=== PATIENT | male | born 1995 | race Caucasian/White ===

== ENCOUNTER 2016-10-12 22:23 | Observation (INO) | payer BC ==
[~2016-10-12] VITALS: Ht 193 cm; Wt 141.9 kg
--- NOTE | ~2016-10-12 | DS ---
PATIENT'S NAME: SANFORD LAM [facility] AGE: 21 Y [address] ROOM: G6324 [place], [place] [address] LOCATION: GPCU ADMIT DATE: 10/13/2016 Discharge Summary DISCHARGE DATE: 10/14/2016 FAMILY PHYSICIAN: Ede Sauceda MD ATTENDING PHYSICIAN: Miguel Velarde V CORRECTED SIGNATURE LINE 10/18/16 AO FINAL DIAGNOSES: 1. Diabetic ketoacidosis. 2. Poorly controlled diabetes mellitus. 3. Low back pain. 4. 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 Please see the history and physical dictated by Dr. Velarde for details of admission. The patient was admitted with elevated blood sugars resulting in DKA. LABORATORY STUDIES: On admission, his sodium was 132, most prior to discharge 139; potassium on admit was 4.8, most prior to discharge 3.9; CO2 on admission was 13, most prior to discharge 21; BUN on admission was 29, at discharge 22; creatinine on admission was 1.3, at discharge 1.1. Hemoglobin A1c was 9.6. C- reactive protein 0.52. TSH 0.923. White blood cell count on admission was 12.1, hemoglobin 15.7, hematocrit 46.7, platelet count 338, and increase in neutrophils. Sedimentation rate was 8. Urinalysis on admission showed protein, glucose, and ketones. Chest x-ray on admission did not show any evidence of infection. HOSPITAL COURSE: The patient was admitted on to the ICU on an IV insulin drip. He was given aggressive IV hydration. He did receive IV fluids. His blood sugars did start to come down. He did have significant pain in his back for which he was given Toradol and narcotics. His blood sugars came down to an acceptable range, and the decision was made to place him back on the insulin pump; however, when he was placed back on the insulin pump, his blood sugars did start to rise. It was also noted at this time that he was still acidotic and was given bicarb in his IV fluids. Decision was made to take the pump off and to start using Levemir and NovoLog. The patient did voice understanding of that and agreed to proceed with that manner. It was felt that he was stable for discharge and that he could work with his primary provider in terms of seeing if his pump was malfunctioning. He is discharged to home. He is advised to follow his diabetic diet. He is to follow up with Mayela Andrea at [facility], he will see Mayela Andrea on 10/18/[address] Ede Sauceda on 10/19/2015 at 11:15. DISCHARGE MEDICATIONS: 1. Synthroid 125 mcg daily. 2. [place] 5/325 one every 6 hours as needed for pain. 3. Ibuprofen 400 mg every 6 hours as needed. PATIENT'S NAME: SANFORD LAM [facility] AGE: 21 Y [address] ROOM: [place] [address] LOCATION: GPCU ADMIT DATE: 10/13/2016 Discharge Summary DISCHARGE DATE: 10/14/2016 FAMILY PHYSICIAN: Ede Sauceda MD ATTENDING PHYSICIAN: Miguel Velarde V 4. He was placed on Lantus 24 units at bedtime and NovoLog Pen 2 units per 15 g of carbs consumed with meals 3 times daily. I did give the patient a note explaining that he was in the hospital from 10/12/2016 through 10/14/2016. LA BINGHAM MD LAW/modl /[id number] CC: MD Mayela Doyle APRN CORRECTED SIGNATURE LINE 10/18/16 AO d: 10/15/16 0308 t: 10/26/16 1202, DISCHARGE SUMMARY
--- NOTE | ~2016-10-12 | ECHO ---
Transthoracic Echocardiography Report (TTE) Demographics Patient Name SANFORD LAM Date of Study 10/13/2016 Patient Number [id number] Visit Number [id number] Date of 1995 Room Number G6324 Accession Number [id number] Gender Male Age 21 year(s) Referring Komal Jeff Suspender Maker Rogelio Douglas MD Physician Interpreting [facility] Literacy Coordinator Physician Sylvia CHAPA Supervising Ordering Physician Syd Rivera MD/JAY JAY Wilburn MD Nurse Stress Hairspring Vibrator Conclusions Contractility Score Summary Normal Left Ventricular contractility was noted. Summary Normal LV/RV size and s ystolic function. The estimated left ventricular ejection fraction is 60-65%. Diastolic assessment reveals normal relaxation. The right atrium is mildly dilated. No significant valvular abnormalities. No pericardial effusion. Procedure Type of Study TTE procedure:2D Echocardiogram, M-Mode, Doppler , Color Doppler. Procedure Date Date: 10/13/2016 Start: 08:05 AM Study Location: Inpatient Portable Technical Quality: Good visualization Indications:Cardiomegaly. Appropriate Use Criteria: 9 Patient Status: Routine HR: 78 bpm BP: 135/61 mmHg M-Mode/2D Measurements LV Diastolic Dimension: 6.31 cm LV Systolic Dimension: 4.28 cm LV Septum Diastolic: 1.25 cm LV PW Diastolic: 1.15 cm AO Root Dimension: 2.8 cm Cardiac Output: 10.67 l/min LA Dimension: 4 cm EF Estimated: 65 % LVOT: 2.7 cm LVOT VTI: 23.9 cm RV Base: 3.07 cm LV Stroke volume: 136.77 ml RV Length: 8.64 cm Doppler Measurements AV Peak Velocity: 1.57 m/s MV Peak E-Wave: 1.22 m/s AV Peak Gradient: 9.86 mmHg MV Peak A-Wave: 0.74 m/s AV Mean Gradient: 5 mmHg MV E/A Ratio: 1.66 LVOT Peak Velocity: 1.4 m/s MV P1/2t: 70 msec TR Gradient:6.35 mmHg PV Peak Velocity: 1.15 m/s Estimated RAP:3 mmHg PV Peak Gradient: 5.29 mmHg Estimated RVSP: 9 mmHg Estimated PASP: 9.35 mmHg E' Septal Velocity: 0.1 m/s A' Septal Velocity: 0.08 m/s E' Lateral Velocity: 0.1 m/s A' Lateral Velocity: 0.08 m/s Findings Left Ventricle Diastolic assessment reveals normal relaxation. Right Ventricle Normal right ventricular size and function. Left Atrium The left atrium is normal in size. Right Atrium The right atrium is mildly dilated. IVC measures 2.06 cm with inspiratory collapse. Mitral Valve Trivial mitral regurgitation by color Doppler. Mild mitral annular calcification. Aortic Valve Normal aortic valve structure and function. Tricuspid Valve Trivial tricuspid regurgitation by color Doppler. Pulmonic Valve Normal pulmonic valve structure and function. Pericardial Effusion No evidence of pericardial effusion. Miscellaneous Visualized portions of the aortic root and ascending aorta appear normal in size. Pleural Effusion No evidence of pleural effusion. Contractility Score LV regional wall motion:(0-Non visualized 1-Normal 2-Hypokinesis 3-Akinesis 4-Dyskinesis 5-Aneurysm) Signature dtt: SYLVIA SHER dtd: 10/13/16 0805 Physician Self Edit
--- NOTE | ~2016-10-12 | HP ---
PATIENT'S NAME: SANFORD LAM [facility] AGE: 21 Y [address] ROOM: [place] [address] LOCATION: GPCU ADMIT DATE: 10/13/2016 History & Physical DISCHARGE DATE: FAMILY PHYSICIAN: MANUEL MILLER MD ATTENDING PHYSICIAN: JANEL MORIN V DATE OF SERVICE: CHIEF COMPLAINT: High sugars. HISTORY OF PRESENT ILLNESS: The patient is a 21-year-old male with type 1 diabetes. He has been experiencing high sugars in the 300s range for the last several days despite giving himself extra boluses of insulin via his insulin pump. He could not, however, get adequate control of his Accu-Cheks. He went to the hospital in [place] and was treated with IV fluids and was instructed to change his insulin vial and tubing on his pump and follow up with his oracle soa developer. He did this but new tubing/vial did not improve his symptoms or blood glucose. These symptoms include generalized malaise, fatigue, and polyuria. In the ER here, he was found to have mild DKA. The patient also complains of right-sided lower back pain after moving some heavy equipment. He does have a history of bulging disk, status post laminectomy though he denies any weakness or paresthesias. REVIEW OF SYSTEMS: Positive for occasional dyspnea. All 10 systems have been reviewed and all are negative except for pertinent positives mentioned above. PAST MEDICAL HISTORY: Significant for, 1. Degenerative spine disease of lumbar spine. 2. Type 1/insulin-dependent diabetes. 3. Hypothyroidism. CURRENT MEDICATIONS: 1. [place]. 2. Insulin via pump. 3. Levothyroxine. SOCIAL HISTORY: The patient denies any toxic habits. He works with inmates in the longterm. As such, he does have multiple exposures. [facility]GE[facility] 21 Y [address] ROOM: [place] [address] LOCATION: GPCU ADMIT DATE: 10/13/2016 History & Physical DISCHARGE DATE: FAMILY PHYSICIAN: MANUEL MILLER MD ATTENDING PHYSICIAN: JANEL MORIN V FAMILY HISTORY: Significant for heart disease and cancer on his father's side. PHYSICAL EXAMINATION: VITAL SIGNS: Blood pressure 137/62, pulse is 78, respirations 14, saturating 98%, and temperature is 96.4. GENERAL APPEARANCE: A morbidly obese, young male, in mild discomfort. NEUROLOGICAL: Nonfocal. HEENT: ENT: Dry mucous membranes. Eyes: Pupils are equal and reactive to light. LYMPHATIC: No cervical lymphadenopathy. ENDOCRINE: No thyromegaly. LUNGS: Clear to auscultation. HEART: Rate is regular. No appreciable murmurs, gallops, or rubs. ABDOMEN: Soft, nontender, and nondistended. : No costovertebral angle tenderness. VASCULAR: 2+ pedal pulses. MUSCULOSKELETAL: Does show some paravertebral spinal muscle tenderness in the right side. SKIN: Warm and dry. PSYCHIATRIC: Appropriate mood, cognition, and affect. LABORATORY DATA: Studies done in the ER significant for Accu-Cheks 296, venous pH 7.12. Sodium 132, bicarb is 13, anion gap is 17, BUN 29, creatinine 1.3. Ketones positive at 1-16. White count is 12.1. Chest x-ray showed some cardiomegaly. ASSESSMENT AND PLAN: This is a 21-year-old male who will be admitted with, 1. Diabetic ketoacidosis. We will treat him with IV insulin. We will frequently monitor his electrolytes. We will continue aggressive hydration, at this point with normal saline and change it to potassium containing IV once his potassium goes down as expected. We will request a oracle soa developer consult as his diabetes is very poorly controlled. 2. Musculoskeletal back pain. I explained to the patient that given recent typical injury causing lower back pain, the best therapy for now is exercise and NSAIDs, and we will defer any imaging until later. 3. Complains of dyspnea and cardiomegaly on the chest x-ray. We will get an EKG and a 2-dimensional echocardiogram given positive review of systems and radiologic findings. 4. Hypothyroidism. We will continue the patient on his current thyroid and check his TSH. Additional management will depend on clinical course. Time dedicated to the patient's encounter is 35 minutes. PATIENT'S NAME: SANFORD LAM [facility] AGE: 21 Y [address] ROOM: [place] [address] [facility] AD[facility] DATE: 10/13/2016 History & Physical DISCHARGE DATE: FAMILY PHYSICIAN: MANUEL MILLER MD ATTENDING PHYSICIAN: JANEL MORIN V MD BRYCE POWERS/kikol /[id number] D: [id number] T: [id number] HISTORY & PHYSICAL
--- NOTE | ~2016-10-12 | ER ---
PATIENT'S NAME: SANFORD LAM [facility] AGE: 21 Y [address] ROOM: [place] [address] LOCATION: GPCU ADMIT DATE: 10/13/2016 ER/Outpatient Report DISCHARGE DATE: FAMILY PHYSICIAN: MANUEL MILLER MD ATTENDING PHYSICIAN: JANEL MORIN V Time of Evaluation: 2235 hours. HISTORY OF PRESENT ILLNESS: The patient is a 21-year-old type 1 diabetic, who presents with history of not feeling well for approximately 2 days. The patient was actually seen in [place], [place] ER this afternoon. Blood sugar at that time was over 500. He was given a couple liters of fluid and then advised to follow up with his family doctor. The patient also has experienced some low back pain over the last week. The patient does have a history of herniated disk, which has been treated for in the past. He denies any fever, but has had chills. He has also had 2 emesis today. ALLERGIES: NONE. CURRENT MEDICATIONS: See his copied list. He does have an insulin pump. MEDICAL HISTORY: Jolanta's disease, herniated disk, insulin-dependent diabetes mellitus. SURGERIES: Include diskectomy and hemorrhoidectomy. SOCIAL HISTORY: Denies tobacco use. Alcohol, 4 to 5 drinks per week. REVIEW OF SYSTEMS: GENERAL: Chills. Denies fevers. HEENT: No complaints of headache, visual changes, sore throat. RESPIRATORY: He has had no cough or wheezing. CARDIOVASCULAR: No chest pain. No heart palpitations. GASTROINTESTINAL: Denies abdominal pain. He has had nausea and vomiting. GENITOURINARY: No flank pain. No dysuria. MUSCULOSKELETAL: Negative. PHYSICAL EXAMINATION: VITAL SIGNS: His temperature here was 96.4, his respiratory rate 14, pulse 78, his O2 sats 98%. His blood pressure 137/62. PATIENT'S NAME: SANFORD LMA [facility] AGE: 21 Y [address] ROOM: [address] [address] LOCATION: GPCU ADMIT DATE: 10/13/2016 ER/Outpatient Report DISCHARGE DATE: FAMILY PHYSICIAN: MANUEL MILLER MD ATTENDING PHYSICIAN: JANEL MORIN V GENERAL APPEARANCE: Oriented x3. Did not appear to be in any severe distress. HEENT: Head: Normocephalic. Eyes: PERRLA. No icterus. Nose: Septum midline. Mouth: Teeth appeared in good repair. Tongue and oral membranes were dry. LUNGS: Peripherally were clear bilaterally. HEART: Heart tones distant but regular. ABDOMEN: Appeared soft, nontender. BACK: He had a small surgical scar on the lumbar area. Slightly tender to palpation. NEUROLOGICAL: He had good sensation to his lower extremities. LABORATORY DATA AND X-RAYS: His venous pH was critically high at 7.12. Acetones were positive. CBC: White count 12.1, ANC was 10.4, his hemoglobin was 15.7. His CMS, sodium was low at 132, as well as his CO2 low at 13, anion gap was 21.8. His glucose here was 316. BUN high at 29. CRP was 0.52. His sed rate was within normal limits. Hemoglobin A1c was 9.6, mean glucose was 28.8. Sedimentation rate was 8. ASSESSMENT: Diabetic ketoacidosis. PLAN AND TREATMENT: IV was started here in the emergency room with normal saline. Dr. Morin, the hospitalist, was consulted and will admit the patient to PCU. He advised to giving NovoLog 8 units subcu. The patient was also given 60 of Toradol IM for his back pain. MINOO LYNCH FOR MD DONNY RAMEY/gurdeep /[id number] d: 10/13/16 0159 t: 10/22/16 1242, OUTPATIENT REPORT
[2016-10-12 22:39] LABS: BILIRUBIN URINE NEGATIVE (NEGATIVE); BLOOD URINE NEGATIVE /UL (NEGATIVE); COLOR URINE YELLOW (YELLOW); GLUCOSE URINE 1000 mg/dL (NEGATIVE); KETONE URINE 150 mg/dL (NEGATIVE); LEUKOCYTES URINE NEGATIVE /UL (NEGATIVE); NITRITE URINE NEGATIVE (NEGATIVE); PROTEIN URINE 15 mg/dL (NEGATIVE); SPEC GRAVITY URINE 1.025 (1.003-1.035); TURBIDITY URINE CLEAR (CLEAR); UROBILINOGEN URINE NORMAL (NORMAL)
[2016-10-12 22:48] LABS: BACTERIA URINE NEGATIVE (NEGATIVE); EPITHELIAL URINE 0-2 #/HPF (NEGATIVE); RBC URINE NEGATIVE #/HPF (NEGATIVE); RENAL EPITH URINE NEGATIVE #/HPF (NEGATIVE); WBC URINE NEGATIVE #/HPF (NEGATIVE)
[2016-10-12 23:05] LABS: BASOPHIL # 0.1 K/uL (0.0-0.2); BASOPHIL % 0.4 %; EOSINOPHIL % 0.1 %; HEMATOCRIT 46.7 % (37.0-53.0); HEMOGLOBIN 15.7 g/dL (12.0-17.0); IMMATURE GRANULOCYTE % 0.3 %; LYMPHOCYTE # 1.2 K/uL (0.8-4.0); LYMPHOCYTE % 9.6 %; MCH 29.1 pg (27.0-34.0); MCHC 33.6 gm/dL (32.0-36.5); MCV 86.6 fl (83.0-98.0); MONOCYTE # 0.4 K/uL (0.0-1.0); MONOCYTE % 3.3 %; MPV 9.7 fl (9.4-12.4); NEUTROPHIL # (ANC) 10.4 K/uL (1.4-9.0); NEUTROPHIL % 86.3 %; NRBC % 0 /100WBC (0-0.00); PLATELET COUNT 338 K/uL (150-450); RBC 5.39 M/uL (4.00-6.00); RDW-CV 12.1 % (11.9-14.6); WBC 12.1 K/uL (4.0-11.0)
[2016-10-12 23:26] LABS: ALBUMIN 4.5 gm/dL (3.5-5.0); ALK PHOS 68 IU/L (33-138); ALT 30 IU/L (12-78); AST 15 IU/L (10-40); BLOOD UREA NITROGEN 29 mg/dL (6-24); CALCIUM 8.8 mg/dL (8.5-10.5); CHLORIDE 102 mMol/L (96-110); CREATININE 1.3 mg/dL (0.6-1.3); ESTIMATED GFR (MDRD EQUATION) > 60; POTASSIUM 4.8 mMol/L (3.7-5.1); SODIUM 132 mMol/L (135-145); TOTAL BILIRUBIN 0.6 mg/dL (0.0-1.5); TOTAL PROTEIN 8.8 g/dL (6.0-8.4)
[2016-10-12 23:28] LABS: ANION GAP 21.8 (10.0-19.0); CO2 13 mMol/L (22-32)
[2016-10-13] MEDS ORDERED: LEVOTHROID (S125 MCG PO (03:10)
[2016-10-13] MEDS ORDERED: HUMULIN R500 UNIT/M SUB-Q (03:10)
[2016-10-13] MEDS ORDERED: NORCO 5-325 TA1 EACH PO (03:11)
[2016-10-13] MEDS ORDERED: IBUPROFEN400 MG PO (03:12)
[2016-10-13 03:14] LABS: ANION GAP 18.5 (10.0-19.0); BLOOD UREA NITROGEN 27 mg/dL (6-24); CALCIUM 8.2 mg/dL (8.5-10.5); CHLORIDE 106 mMol/L (96-110); CREATININE 1.3 mg/dL (0.6-1.3); ESTIMATED GFR (MDRD EQUATION) > 60; MAGNESIUM 2.1 mg/dL (1.3-2.6); POTASSIUM 4.5 mMol/L (3.7-5.1); SODIUM 136 mMol/L (135-145)
[2016-10-13 03:16] LABS: CO2 16 mMol/L (22-32)
--- NOTE | 2016-10-13 03:49 | NUR ---
Patient admitted with DKA. Type 1 DM. Wears u500 insulin pump at home. states he checks sugar muti times a day. patient states he has been having high sugars and over all not feeling well for about 5 days. reports of nauesa/vomitting. from [facility]. went to there ER resently for back pain. and father in room. educated patient on use of call light.
[2016-10-13 06:57] LABS: ANION GAP 16.2 (10.0-19.0); BLOOD UREA NITROGEN 23 mg/dL (6-24); CHLORIDE 109 mMol/L (96-110); CREATININE 1.2 mg/dL (0.6-1.3); ESTIMATED GFR (MDRD EQUATION) > 60; MAGNESIUM 2.1 mg/dL (1.3-2.6); POTASSIUM 4.2 mMol/L (3.7-5.1); SODIUM 138 mMol/L (135-145)
[2016-10-13 06:59] LABS: CO2 17 mMol/L (22-32)
--- NOTE | 2016-10-13 11:34 | NUR ---
Introduced self and care management services to patient and his parents at bedside, he was showering when I visited. They deny concerns about him going home on discharge, deny needs. Knit Goods Cutter Hand will follow.
--- NOTE | 2016-10-13 12:08 | NUR ---
[facility] Center note: 0930 Provided Diabetes Management booklet and Survival Skills checklist for patient to complete when he feels well enough. At this time, patient is on insulin drip. CDE didn't some troubleshotting with patient to evaluate possibel causes of DKA. Patient is on insulin pump at home and spouse states she said when they took out the last infusion set, the cannula was bent over. Will continue to follow patient and when appropriate, will restart insulin pump. Current A1C 9.6 %, discussed need to improve glycemic control to reduces risks of fdc complications related to diabetes. Patient states he plans to continue to follow up post hospital stay with Mayela Whittaker APRN at [facility]
--- NOTE | 2016-10-13 15:23 | NUR ---
Diabetes center note: 1400 Anticipate patient going back on his insulin pump sometime this afternoon/evening. CDE took all of his currently insulin doses off of his pump, T Slim and wrote them down on the MD order set for MD to sign when approved. U 500 insulin being utilized in his pump. Patient signed consent to manage his own pump and to record all blood sugars and insulin doses on log sheet at his bedside. Patient completed the Diabetes Survival Skills checklist with no knowledge deficits noted. Will provide the Insulin pump safetly guidelines to prevent future DKA episodes, discussed checking blood sugars more frequently and need to follow up with Mayela Whittaker APRN at [facility] for on-going Diabetes Management. Discussed current A1C 9.6 % 10/12/16, will need on-going assessment and management. We discussed his job situation also. Will continue to follow throughout hospital stay.
[2016-10-13 17:27] LABS: ALBUMIN 3.4 gm/dL (3.5-5.0); BLOOD UREA NITROGEN 20 mg/dL (6-24); CALCIUM 7.6 mg/dL (8.5-10.5); CHLORIDE 109 mMol/L (96-110); CREATININE 1.1 mg/dL (0.6-1.3); ESTIMATED GFR (MDRD EQUATION) > 60; MAGNESIUM 1.8 mg/dL (1.8-2.6); PHOSPHORUS 2.9 mg/dL (2.5-4.9); POTASSIUM 4.3 mMol/L (3.7-5.1); SODIUM 137 mMol/L (135-145)
[2016-10-13 17:28] LABS: ANION GAP 15.3 (10.0-19.0); CO2 17 mMol/L (22-32)
--- NOTE | 2016-10-13 19:12 | NUR ---
PT A&OX3. INDEPENDENT IN ROOM. VSS. LAST BS 430-MD NOTIFIED. IV INSULIN D/D. PT USES INSULIN PUMP. NO C/O NAUSEA/VOMITTING. IV TO RIGHT AC.
[2016-10-14 04:38] LABS: BASOPHIL # 0.1 K/uL (0.0-0.2); BASOPHIL % 0.7 %; EOSINOPHIL # 0.1 K/uL (0.0-0.5); EOSINOPHIL % 1.6 %; HEMATOCRIT 38.7 % (37.0-53.0); HEMOGLOBIN 13.3 g/dL (12.0-17.0); IMMATURE GRANULOCYTE % 0.3 %; LYMPHOCYTE # 2.3 K/uL (0.8-4.0); LYMPHOCYTE % 33.3 %; MCH 29.2 pg (27.0-34.0); MCHC 34.4 gm/dL (32.0-36.5); MCV 84.9 fl (83.0-98.0); MONOCYTE # 0.8 K/uL (0.0-1.0); MONOCYTE % 11.7 %; MPV 9.5 fl (9.4-12.4); NEUTROPHIL # (ANC) 3.6 K/uL (1.4-9.0); NEUTROPHIL % 52.4 %; NRBC % 0 /100WBC (0-0.00); RBC 4.56 M/uL (4.00-6.00); RDW-CV 12.3 % (11.9-14.6); WBC 6.9 K/uL (4.0-11.0)
[2016-10-14 04:41] LABS: PLATELET COUNT 259 K/uL (150-450)
--- NOTE | 2016-10-14 04:54 | NUR ---
A/O. HR 60-80s. SBP 120-140s. ROOM AIR. AFEBRILE. BLOOD SUGARS AT BEGINNING OF SHIFT 400s. ATTEMPTED TO GIVEN BOLUSES THROUGH INSULIN PUMP, SUGARS REMAINED THE SAME. PATIENT STATES "I HAVE GONE THROUGH 4 OR 5 BAD INSULIN PUMPS." PUMP D/C'd AND GIVEN LEVIMIR AND NOVOLOG. BLOOD SUGAR LAST AT 0330 (174). INDEPENDENT IN ROOM AND [place]EL[place]. D5 1/2NS 40KCL WITH BICARB AT 100ML/HR. TORADOL IM GIVEN x1. NEPROXAN GIVENx1. FOR BACK PAIN.
[2016-10-14 05:02] LABS: ALBUMIN 3.6 gm/dL (3.5-5.0); ANION GAP 11.9 (10.0-19.0); BLOOD UREA NITROGEN 22 mg/dL (6-24); CALCIUM 8.2 mg/dL (8.5-10.5); CHLORIDE 110 mMol/L (96-110); CO2 21 mMol/L (22-32); CREATININE 1.1 mg/dL (0.6-1.3); ESTIMATED GFR (MDRD EQUATION) > 60; MAGNESIUM 1.9 mg/dL (1.8-2.6); PHOSPHORUS 2.6 mg/dL (2.5-4.9); POTASSIUM 3.9 mMol/L (3.7-5.1); SODIUM 139 mMol/L (135-145)
--- NOTE | 2016-10-14 15:27 | NUR ---
Diabetes center note: Patient was disconnected from insulin pump in the middle of the night due to elevated blood sugars. Troubleshooted with patient and spouse this a.m., ? whether U 500 insulin is affective or sets for insulin pump infusion are adequate for patient. Patient states that he thinks he has been using out of the U-500 insulin vial for about 2 weeks and the current kind of infusion sets he has been using for about a month. Patient was given Levemir insulin last night after being disconnected from his pump and his FBS this a.m. was 180. Discussed situation with Dr. Grace and she would like to keep that patient off of his pump, send him home on Lantus 24 units and Novolog 2 units for 15 grams of carb. Provided vouchers for patient to obtain insulin Patient states he does have an appt with Mayela Whittaker APRN at [facility] on 10/18/16 for on-going diabetes management.
[2016-10-14] MEDS ORDERED: LANTUS (IN100 UNIT/M SUB-Q (15:58)
[2016-10-14] MEDS ORDERED: NOVOLOG FL100 UNIT/1 IM (16:00)
--- NOTE | 2016-10-14 19:29 | NUR ---
PATIENT DISMISSED TO HOME PER PRIVATE CAR W/ . TRANSPORTED TO CAR BY NURSE. REVIEWED DISMISSAL INSTRUCTIONS WITH PATIENT, HE VERBALIZED UNDERSTANDING. GAVE INFORMATION SHEETS ON NEW MEDICATIONS. PATIENT STATED HE HAD NO FURTHER QUESTIONS REGARDING MEDICATIONS OR ANY OF THE DISMISSAL INSTRUCTIONS. HE STATED HE WAS WELL EDUCATED ON INSULIN ADMINISTRATION AND CARB COUNTING.
== END 2016-10-14 16:40 | disposition disaster alternative care site (69) ==
LOC: GMED 22:23 → GPCU 10-13 00:41
PROVIDERS: Emergency Medicine; Internal Medicine; ADMIT Internal Medicine
DX: E10.10 Type 1 diabetes mellitus with ketoacidosis without coma (principal); M54.5 Low back pain; E03.9 Hypothyroidism, unspecified; E06.3 Autoimmune thyroiditis; M51.36 Other intervertebral disc degeneration, lumbar region; Z98.890 Other specified postprocedural states
CPT/HCPCS: G0378; J1885; J2405; J3480; J7030